=== PATIENT | female | born 1960 | race Caucasian/White ===

== ENCOUNTER 2017-02-23 11:20 | Day surgery (SDC) | payer OTHER ==
[2017-02-22 09:06] VITALS: BMI 28.1
[~2017-02-23 11:20] MED LIST: LACTATED RINGERS 1,000 ML IV SCH; LIDOCAINE 1% 20 ML VIAL (10MG/ML) FOR IV START INTRADERMA PRN
[2017-02-23 11:42] VITALS: RESP 16; TEMP 97.6
[2017-02-23] MEDS ORDERED: fentaNYL (PF) 50 MCG/ML 2 ML AMP ONE (12:24)
[2017-02-23] MEDS ORDERED: MIDAZOLAM 2 MG/2 ML VIAL ONE (12:24)
[2017-02-23] MEDS ORDERED: PROPOFOL 10 MG/ML 20 ML VIAL IV ONE (12:24)
--- NOTE | 2017-02-23 12:48 | P.PCN ---
Date of Procedure: 02/23/17 Procedure(s) Performed: Brief history: Patient is a pleasant 56-year-old white female, scheduled for an elective upper endoscopy as well as colonoscopy as a part of evaluation of epigastric pain, abdominal bloating and change in bowel habits. Procedure performed: Esophagogastroduodenoscopy biopsy Colonoscopy Preoperative diagnosis: Epigastric pain and abdominal bloating Change in bowel habits Anesthesia: MAC Procedure: After informed consent was obtained from the patient was brought into the endoscopy unit and IV sedation was administered by anesthesia under continuous monitoring. Initially upper endoscopy was done. The Olympus GF 160 video endoscope was inserted inserted into the mouth and esophagus intubated without any difficulty and was gradually advanced into the stomach and duodenum and carefully examined. The bulb and second part of the duodenum appeared normal. The scope was then withdrawn into the stomach adequately insufflated with air and upon careful examination the antrum had mild gastritis and biopsies were done from this area. The body, cardia and fundus appeared normal. The scope was then withdrawn into the esophagus. The GE junction was located at 40 cm to the incisors. It appeared regular with no erythema erosions or ulcerations. Rest of the esophagus appeared normal. Patient tolerated the procedure well. At this time the patient continued to remain sedation. Initial digital rectal examination was normal. Olympus CF 160 video colonoscope was then inserted into the rectum and gradually advanced to the cecum without any difficulty. Careful examination was performed as the scope was gradually being withdrawn. The prep was excellent. The cecum, ascending colon, transverse colon, descending colon, sigmoid colon and rectum appeared normal. Retroflexion was performed in the rectum and no lesions were noted. Patient tolerated the procedure well. Impression: 1. Upper endoscopy revealed mild antral gastritis but no evidence of esophagitis or peptic ulcer disease. 2. Colonoscopy was essentially within normal limits with no evidence of colitis or colorectal neoplasia. Recommendations: Findings of this examination were discussed with the patient as well as her family. She was advised to follow with the biopsy results. She will continue the high-fiber diet and she will be seen in office in 3-4 weeks.
[2017-02-23 13:15] VITALS: BP 126/74; PULSE 63
== END 2017-02-23 13:47 | disposition home or self-care (01) ==
LOC: ORWHC2ENDO 11:20
PROVIDERS: ATTEND Internal Medicine Gastroenterology
DX: K29.50 Unspecified chronic gastritis without bleeding (principal); K21.9 Gastro-esophageal reflux disease without esophagitis; I10 Essential (primary) hypertension; E07.9 Disorder of thyroid, unspecified; Z79.899 Other long term (current) drug therapy; Z88.1 Allergy status to other antibiotic agents; Z91.040 Latex allergy status; Z91.013 Allergy to seafood; Z88.8 Allergy status to other drugs, medicaments and biological substances; Z91.09 Other allergy status, other than to drugs and biological substances
CPT/HCPCS: 81025; 88305; 88342; 45378; 43239; J2250; J3010; J2704

== ENCOUNTER → 2018-07-04 | Day surgery (SDC) | payer OTHER ==
[2018-06-28 14:03] VITALS: BMI 28.0
--- NOTE | 2018-07-03 20:26 | HP ---
HISTORY AND PHYSICAL REASON FOR ADMISSION: Surgery scheduled for 07/04/2018. Gianluca Pepper is a 57-year-old patient seen with progressive left knee pain. Treatment options were discussed. The patient elected to proceed with left knee arthroscopy. Consent was obtained. PAST MEDICAL HISTORY: Hyperlipidemia, hypertension, hypothyroidism. PAST SURGICAL HISTORY: Appendectomy, breast biopsy, cholecystectomy, herniorrhaphy, hysterectomy, knee arthroscopy. DAILY MEDICATIONS: Atorvastatin, Estradiol, lisinopril, Synthroid, Zyrtec. ALLERGIES: MOTRIN, NEOMYCIN, TERAZOL, NEOSPORIN. SOCIAL HISTORY: The patient denies tobacco use. PHYSICAL: Physical evaluation of the left knee range of motion is -1/2 to 120 degrees. There is a mild effusion present. There is tenderness along the medial and lateral joint lines. Positive medial Humberto's. Ligaments stable. Hip rotation without pain. Distal neurovascular exam intact. RADIOGRAPHS: Left knee radiographs revealed mild medial moderate patellofemoral compartment osteoarthritis. MRI revealed abnormal signal through the medial meniscus. IMPRESSION: Internal derangement, left knee with medial meniscal tear versus osteochondral tear. PLAN: Left knee arthroscopy with partial meniscectomy versus chondroplasty and debridement. Surgery scheduled for 07/04/2018. MMODL / IJN: [id number] /
[~2018-07-04] MED LIST changes: +BUPIVACAIN-EPI 0.25%-1:200,000 30 ML VIAL INTRAARTIC ONE; +DEXAMETHASONE SOD PHOSPHATE 10 MG/ML 1 ML VIAL IV ONE; +HYDROcodone/APAP 7.5-325MG 1 EACH TAB PO ONE; +LIDOCAINE 1% 20 ML VIAL (10MG/ML) FOR IV START INTRADERMA ONE; -LIDOCAINE 1% 20 ML VIAL (10MG/ML) FOR IV START INTRADERMA PRN; +LIDOCAINE 1% INJ 10MG/ML (20 ML MDV) ONE; +MIDAZOLAM 2 MG/2 ML VIAL IV PRN; +MIDAZOLAM 2 MG/2 ML VIAL ONE; +ONDANSETRON 4 MG/2 ML VIAL IVP ONE; +PROPOFOL 10 MG/ML 20 ML VIAL IV ONE; +SCOPOLAMINE 1.5MG/72HR PATCH TRANSDERM ONE; +ceFAZolin IN SWFI 2 GM/20 ML SYRINGE IVP ONE; +fentaNYL (PF) 50 MCG/ML 2 ML AMP ONE
[2018-07-04 09:57] VITALS: RESP 18
[2018-07-04 11:48] VITALS: TEMP 97
--- NOTE | 2018-07-04 11:50 | P.OP ---
Date of Procedure: 07/04/18 Preoperative Diagnosis: Internal derangement left knee Postoperative Diagnosis: 1. Tear medial and lateral meniscus left knee 2. Reactive synovitis medial, lateral and suprapatellar compartments left knee 3. Grade 3 chondromalacia medial femoral condyle left knee Procedure(s) Performed: 1. Arthroscopic partial medial and lateral meniscectomy left knee 2. Arthroscopic partial synovectomy medial, lateral and suprapatellar compartments left knee 3. Arthroscopic chondroplasty medial femoral condyle left knee Anesthesia: DESTINEEA, local Surgeon: Levi Lee Estimated Blood Loss (ml): 7 Pathology: none sent Condition: stable Disposition: PACU Indications for Procedure: 57-year-old patient seen with progressive left knee pain. After having treatment options discussed, she elected to proceed with arthroscopy. Operative Findings: see description of procedure Description of Procedure: Patient was taken to the operative suite. Patient underwent a general anesthetic by the department of anesthesia. Patient was given preoperative antibiotics. The left lower extremity was placed in a well-padded arthroscopic leg ashton. The left leg was prepped and draped in the normal sterile orthopedic fashion. A lateral parapatellar and suprapatellar incision was made. Trochars were inserted. Arthroscopy was initiated. Suprapatellar pouch revealed diffuse thick reactive synovitis. The patellofemoral joint appeared to articulate congruently. There was grade 1 chondromalacia of the patellofemoral joint with no osteochondral tears present. The scope was guided into the medial gutter. No loose bodies or plica were identified. The scope was then guided into the medial compartment. A medial parapatellar incision was made. Trocar inserted followed by probe. There was a complex tear involving the posterior horn medial meniscus. There was an area of grade 3 chondromalacia medial femoral condyle with osteochondral tears present. There was thick reactive synovitis anteriorly. I performed a partial medial meniscectomy down to stable tissue. I performed a chondroplasty of the medial femoral condyle down to stable tissue. I performed a partial synovectomy decompressing the reactive synovitis. The residual meniscus was stable. The residual osteochondral surface of the medial femoral condyle was stable. There was grade 3 chondromalacia there. There was good decompression of the reactive synovitis. Scope and probe were then guided into the intercondylar notch. Cruciates were identified, probed and found to be stable. The scope and probe were then guided into lateral compartment. There was a small radial tear involving the midbody lateral meniscus. There were grade 1 chondromalacia changes of the lateral compartment with no osteochondral tears present. There was reactive synovitis anteriorly. I performed a partial lateral meniscectomy down to stable tissue. I performed a partial synovectomy decompressing the thick reactive synovitis. The residual meniscus was probed and found to be stable. The scope was in guided back into the suprapatellar compartment. I introduced a motorized shaver into the suprapatellar compartment. I debrided some piecemeal fragments of meniscus I encountered. I performed a partial synovectomy decompressing the reactive synovitis. The shaver was removed. I took one more look on the entire knee, no residual debris. Instruments were now removed from the joint. The joint was infiltrated with .25% Marcaine. The portal sites were repaired with single interrupted nylon sutures. Sterile dressings were applied. The patient was placed into a NATHAN hose. No tourniquet was utilized. The patient was awakened, transferred to a bed and taken to recovery stable satisfactory condition.
[2018-07-04] MEDS: fentaNYL (PF) 50 MCG/ML 2 ML AMP IV PRN ×2 (12:01→12:11)
[2018-07-04 13:51] VITALS: BP 152/76; PULSE 84
== END | disposition home or self-care (01) ==
LOC: OR 09:14
PROVIDERS: ATTEND Orthopaedic Surgery
DX: S83.242A Other tear of medial meniscus, current injury, left knee, initial encounter (principal); S83.282A Other tear of lateral meniscus, current injury, left knee, initial encounter; X58.XXXA Exposure to other specified factors, initial encounter; M65.862 Other synovitis and tenosynovitis, left lower leg; M94.262 Chondromalacia, left knee; E78.5 Hyperlipidemia, unspecified; I10 Essential (primary) hypertension; E03.9 Hypothyroidism, unspecified; Z79.890 Hormone replacement therapy; Z79.899 Other long term (current) drug therapy; Z88.6 Allergy status to analgesic agent; Z88.3 Allergy status to other anti-infective agents; Z91.040 Latex allergy status; Z91.013 Allergy to seafood; Z91.09 Other allergy status, other than to drugs and biological substances
CPT/HCPCS: 29880; J2250; J1100; J2405; J2001; J3010; J2704; J0690

== ENCOUNTER → 2021-11-22 | Day surgery (SDC) | payer BC ==
[~2021-11-22] MED LIST changes: -BUPIVACAIN-EPI 0.25%-1:200,000 30 ML VIAL INTRAARTIC ONE; -DEXAMETHASONE SOD PHOSPHATE 10 MG/ML 1 ML VIAL IV ONE; -HYDROcodone/APAP 7.5-325MG 1 EACH TAB PO ONE; -LACTATED RINGERS 1,000 ML IV SCH; -LIDOCAINE 1% 20 ML VIAL (10MG/ML) FOR IV START INTRADERMA ONE; -LIDOCAINE 1% INJ 10MG/ML (20 ML MDV) ONE; -MIDAZOLAM 2 MG/2 ML VIAL IV PRN; -MIDAZOLAM 2 MG/2 ML VIAL ONE; -ONDANSETRON 4 MG/2 ML VIAL IVP ONE; -PROPOFOL 10 MG/ML 20 ML VIAL IV ONE; -SCOPOLAMINE 1.5MG/72HR PATCH TRANSDERM ONE; +SODIUM CHLORIDE 0.9% 1,000 ML IV ONE; +SODIUM CHLORIDE 0.9% 1,000 ML IV SCH; -ceFAZolin IN SWFI 2 GM/20 ML SYRINGE IVP ONE; -fentaNYL (PF) 50 MCG/ML 2 ML AMP ONE
[2021-11-22 12:29] VITALS: BP 182/94; PULSE 80; RESP 16; TEMP 98.1
--- NOTE | 2021-11-24 19:20 | P.EPPROC ---
- EP Procedure Note Electrophysiology Procedure Note: Diagnosis Recurrent syncope Twelve-lead EKG Sinus mechanism normal NH narrow QRS normal ST segments normal QT interval No delta waves no epsilon waves Tilt table test per protocol Baseline blood pressure 153/81 mmHg Baseline heart rate is 60 beats a minute Patient was tilted upright at an angle of 70 per protocol In about 20 minutes a heart rate increased to about 90 beats a minute, she complained of pounding in the chest This was followed by a sudden drop in blood pressure 81/58 mmHg She was lightheaded and dizzy and then passed out Concomitantly drop in heart rate to 30 beats a minute She was sweaty and weak When she was laid supine her blood pressure heart rate normalized Impression Normal related EKG Mixed neurocardiogenic response to upright tilting Drop in blood pressure was preceded by increase in heart rate
== END ==
LOC: CATHEP 11:52
PROVIDERS: ATTEND Internal Medicine Clinical Cardiac Electrophysiology
DX: R55 Syncope and collapse (principal); Z20.822 Contact with and (suspected) exposure to COVID-19
CPT/HCPCS: 87635; 93660

== ENCOUNTER → 2023-06-08 | Outpatient (CLI) | payer BC ==
--- NOTE | 2023-06-08 10:34 | P.GSHP ---
History of Present Illness H&P Date: 06/08/23 Chief Complaint: Left nipple discharge Chery is a 62-year-old white female seen in consultation for Dr. Van regarding left areolar skin discharge. She states she had a similar issue approximately 25 years ago and had milk ducts removed. This was benign. She is very concerned secondary to her family history with a sister with breast cancer. The patient's most recent mammogram was on 204245 which was benign BIRADS 1. The patient has had bilateral itching of both breast, and that on the right side has resolved but on the left side and continued to itch and she noticed some discharge from the skin. She is not complaining of any lumps masses or nodules of concern in either breast. The discharge was clear in nature and than became green and today is yellow. She is not compaliningo fo any fever of chills. She is unaware of any exposure to anything unusual. She does work outside but does not recall any bug bites. This had bilateral breast duct exploration many years ago this was benign. She states this was done for green discharge Patient has recently stopped utilizing Zyrtec, itching started approximately 10 days after she stopped Zyrtec. She also started hydrochlorothiazide for her blood pressure at approximately the same time. The patient has been on estradiol for postmenopausal symptoms for 28 years; she tried to stop over the last several years but she gets "horrible" hot flashes Caffeine: Less than one cup per day Nicotine: Negative Chocolate: Occasional Hormones: As above control pills: 7 years, hysterectomy [address] Van [id number] reviewed Family History: Sister: Breast cancer at 54 paternal aunt: breast cancer sister: melanoma brother: melanoma 2 siblings: skin cancer not melanoma Hormonal history: Menarche: 15 , breast fed: yes, age at first : 29 hysterectomy at 32 for bleeding left her ovaries Past medical history: Hypothyroid Hypertension High cholesterol [place], postural orthostatic tachycardia syndrome history of kidney stones Surgical history: hysterectomy hernia gallbladder appy left foot two tendon repairs breast biopsy bilateral bilateral knee surgery kidney stones Social history: Nicotine: Negative Alcohol: Rare Drugs: Negative - Constitutional Constitutional: Reports sweats, Denies chills, Denies fever - EENT Eyes: bilateral blurred vision, denies pain Ears: deny: decreased hearing, tinnitus Ears, nose, mouth and throat: Denies headache, Denies sore throat - Breasts Breasts: bilateral: as per HPI - Cardiovascular Cardiovascular: Reports chest pain, Reports shortness of breath - Respiratory Respiratory: Denies cough, Denies 7 - Gastrointestinal Gastrointestinal: Denies abdominal pain, Denies diarrhea, Denies nausea, Denies vomiting - Genitourinary (Female) Genitourinary: Denies dysuria, Denies hematuria - Menstruation Menstruation: Reports post hysterectomy - Musculoskeletal Musculoskeletal: Reports myalgias - Integumentary Integumentary: Reports as per HPI - Neurological Neurological: Reports numbness, Reports weakness - Psychiatric Psychiatric: Reports anxiety - Endocrine Endocrine: Reports weight change - Hematologic/Lymphatic Comment: none - Allergic/Immunologic Allergic/Immunologic: Reports seasonal allergies Past Medical History Past Medical History: Hyperlipidemia, Hypertension, Thyroid Disorder Additional Past Medical History / Comment(s): HX KIDNEY STONES, BLOOD CLOT URETER POST OP, MITRAL VALVE PROLAPSE, LT ACHILLES TENDINOSIS. History of Any Multi-Drug Resistant Organisms: None Reported Past Surgical History: Appendectomy, Breast Surgery, Cholecystectomy, Hernia Repair, Hysterectomy, Orthopedic Surgery Additional Past Surgical History / Comment(s): KIDNEY STONE BASKET RETRIEVAL, URETER STENT IN AND REMOVED, EXPLORATORY LAPAROSCOPY. MARIA KNEE SURG. BENIGN BREAST BX X3. BARTHOLIN'S GLAND REMOVED. REPAIR TORN LIGAMENT LT ANKLE. LEFT FOOT CYST REMOVED, Past Anesthesia/Blood Transfusion Reactions: No Reported Reaction Past Psychological History: No Psychological Hx Reported Past Alcohol Use History: Rare Past Drug Use History: None Reported - Past Family History Father Family Medical History: Cancer Daughter(s) Additional Family Medical History / Comment(s): "[place]" Medications and Allergies Home Medications Medication Instructions Recorded Confirmed Type Cetirizine HCl [Zyrtec] 10 mg PO DAILY 02/22/17 11/22/21 History Levothyroxine Sodium [Synthroid] 125 mcg PO DAILY 02/22/17 11/22/21 History estradioL [Estradiol] 1 mg PO DAILY 02/22/17 11/22/21 History lisinopriL [Prinivil] 10 mg PO DAILY 02/22/17 11/22/21 History Atorvastatin [Lipitor] 20 mg PO W/SUPPER 11/22/21 11/22/21 History Allergies Allergy/AdvReac Type Severity Reaction Status Date / Time bacitracin Allergy Rash/Hives Verified 06/28/18 13:56 ibuprofen [From Motrin] Allergy Rash/Hives Verified 06/28/18 13:56 latex Allergy Rash/Hives Verified 06/28/18 13:56 neomycin Allergy Rash/Hives Verified 06/28/18 13:56 polymyxin B Allergy Rash/Hives Verified 06/28/18 13:56 [From Neosporin ([id number])] shellfish derived [Shrimp] Allergy Anaphylaxis Verified 06/28/18 13:56 terconazole [From Terazol 3] Allergy Rash/Hives Verified 06/28/18 13:56 STERI STRIPS Allergy Swelling/RE Uncoded 06/28/18 13:56 DDNESS/RASH ULTRASOUND GEL Allergy Rash/Hives Uncoded 06/28/18 13:56 Surgical - Exam - General no distress - Eyes normal ocular movement - ENT no hearing loss - Neck trachea midline - Respiratory normal respiratory effort, clear to auscultation - Cardiovascular Heart Sounds: normal: S1, S2 - Integumentary normal turgor - Neurologic no disoriented, no combative - Musculoskeletal normal gait - Psychiatric oriented to time, oriented to person, oriented to place, speech is normal, memory intact Breast Exam: BRA: 38C Inspection: Bilateral grade 2 ptosis Palpation: Weight breasts: Multiple positional exam no dominant masses or nodules of concern Right axilla: No adenopathy of concern Left breast: Examination reveals some excoriation of the skin on the lateral aspect of the nipple, there is no actual ductal discharge, there is some erythema which appears to be a contact reaction to wear a Band-Aid was placed near the nipple, no dominant masses or nodules of concern Left axilla: No adenopathy of concern Results Mammogram results reviewed Assessment and Plan Assessment: Impression: Fibrocystic breast changes Last bilateral mammogram September 2022 benign BIRADS 1 Excoriation of the skin at the lateral aspect of the left nipple/no true ductal discharge this appears to be resolving Probable contact dermatitis left breast Plan: Patient stopped Zyrtec approximately 10 days before she noted the symptoms will consider restarting this Hydrocortisone cream to the area of concern Dermatology consult Patient to follow up in 3 weeks if this has not resolved with consider a skin biopsy Cc: Dr. Van
== END ==
LOC: WWCWWP 10:02
PROVIDERS: ATTEND Surgery
DX: N60.19 Diffuse cystic mastopathy of unspecified breast (principal); N64.52 Nipple discharge; I10 Essential (primary) hypertension; E78.00 Pure hypercholesterolemia, unspecified; I34.1 Nonrheumatic mitral (valve) prolapse; E03.9 Hypothyroidism, unspecified; Z79.890 Hormone replacement therapy; Z80.3 Family history of malignant neoplasm of breast; Z87.442 Personal history of urinary calculi; Z88.6 Allergy status to analgesic agent; Z90.49 Acquired absence of other specified parts of digestive tract; Z90.710 Acquired absence of both cervix and uterus; Z91.040 Latex allergy status; Z88.8 Allergy status to other drugs, medicaments and biological substances; Z91.013 Allergy to seafood

== ENCOUNTER → 2025-02-04 | Outpatient (CLI) | payer MEDICARE, OTHER ==
[2025-02-04 14:59] LABS: Basophils # (A) 0.08 X 10*3/uL (0.00-0.10); Basophils % (A) 0.8 %; Eosinophils # (A) 0.35 X 10*3/uL (0.04-0.35); Eosinophils % (A) 3.6 %; HCT 44.9 % (37.2-46.3); HGB 14.5 g/dL (12.0-15.0); Lymphocytes # (A) 2.39 X 10*3/uL (0.90-5.00); Lymphocytes % (A) 24.6 %; MCH 29.3 pg (27.0-32.0); MCHC 32.3 g/dL (32.0-37.0); MCV 90.7 FL (80.0-97.0); Monocytes # (A) 0.49 X 10*3/uL (0.20-1.00); Monocytes % (A) 5.1 %; NRBC Per 100 WBC 0 X 10*3/uL (0.00-0.01); Neutrophils # (A) 6.36 X 10*3/uL (1.80-7.70); Neutrophils % (A) 65.6 %; Platelet Count 376 X 10*3/uL (140-440); RBC 4.95 X 10*6/uL (4.10-5.20); RDW 12.6 % (11.5-14.5)
[2025-02-04 15:27] LABS: BUN/Creat Ratio 15.86 Ratio (12.00-20.00); Blood Urea Nitrogen 11.1 mg/dL (9.0-27.0); C Reactive Protein <0.30 mg/dL (0.00-0.80); Chloride 99 mmol/L (96-109); Glucose 98 mg/dL (70-110); Potassium 4.2 mmol/L (3.5-5.5); Sodium 136 mmol/L (135-145)
[2025-02-04 15:28] LABS: ALT 33 U/L (8-44); AST 31 U/L (13-35); Albumin 4.5 g/dL (3.8-4.9); Albumin/Globulin Ratio 1.36 Ratio (1.60-3.17); Alkaline Phosphatase 103 U/L (41-126); Calcium 9.6 mg/dL (8.7-10.3); Carbon Dioxide 25.3 mmol/L (21.6-31.8); Globulin 3.3 g/dL (1.6-3.3); T4, Free (Free Thyroxine) 1.39 ng/dL (0.80-1.80); Total Bilirubin 0.4 mg/dL (0.3-1.2); Total Protein 7.8 g/dL (6.2-8.2)
[2025-02-04 16:04] LABS: Anti-Smith Ab Interp Negative (Negative)
[2025-02-04 16:05] LABS: Erythrocyte Sedimentation Rate 30 mm/Hr (0-30)
== END | disposition home or self-care (01) ==
LOC: LABWHC1 10:33
PROVIDERS: ATTEND Psychiatry & Neurology Neurology
DX: G62.9 Polyneuropathy, unspecified (principal); Z51.81 Encounter for therapeutic drug level monitoring; Z79.899 Other long term (current) drug therapy
CPT/HCPCS: 36415; 80053; 82784; 84439; 84443; 85025; 85652; 86038; 86140; 86235